=== PATIENT | female | born 1980 | race Caucasian/White ===

== ENCOUNTER 2022-12-15 11:40 | Emergency (ER) | payer MEDICARE, MEDICAID ==
[~2022-12-15] VITALS: Ht 154.9 cm; Wt 55.8 kg
[2022-12-15 11:45] VITALS: BP 120/85
[2022-12-15] MEDS ORDERED: haloperidol 1mg tablet PO PRN (12:45)
[2022-12-15] MEDS ORDERED: LORazepam 1 MG tablet PO ONE (12:45)
[2022-12-15] MEDS ORDERED: HALO5TAB PO (13:12)
[2022-12-15] MEDS ORDERED: LORA2TAB96 PO (13:12)
== END 2022-12-15 13:28 | disposition home or self-care (01) ==
LOC: ER 11:41
DX: R45.1 Restlessness and agitation (principal)
CPT/HCPCS: 99283

== ENCOUNTER 2024-01-05 09:48 | Emergency (ER) | payer MEDICARE, MEDICAID ==
[~2024-01-05] VITALS: Ht 154.9 cm; Wt 56.0 kg
[~2024-01-05 09:48] MED LIST: HALO5TAB PO; LORA2TAB96 PO
[2024-01-05 12:32] VITALS: BP 123/84; PULSE 49; RESP 14; TEMP 96.8; O2SAT 93
== END 2024-01-05 12:34 | disposition home or self-care (01) ==
LOC: ER 09:49
DX: S70.11XA Contusion of right thigh, initial encounter (principal); M79.661 Pain in right lower leg; M79.89 Other specified soft tissue disorders; R56.9 Unspecified convulsions; Z88.8 Allergy status to other drugs, medicaments and biological substances; X58.XXXA Exposure to other specified factors, initial encounter; Y93.89 Activity, other specified; Y92.89 Other specified places as the place of occurrence of the external cause; Y99.8 Other external cause status
CPT/HCPCS: 93971; 99284